=== PATIENT | male | born 1985 | race Two or more races ===

== ENCOUNTER 2020-05-13 00:30 | Emergency (ER) | payer BC, OTHER ==
[~2020-05-13] VITALS: Ht 188 cm; Wt 125.2 kg
--- NOTE | 2020-05-13 00:30 | NUR ---
BIBWIFE TO THE ER FOR C/O "I WOKE UP GASPING AIR AND COULD NOT BREATH" CURRENTLY W/ NO C/O SOB OR CP BUT W. C/O ACID REFLUX,PT TO BED 4, AAOX4, -SOB, -CP, VSS, NAD NOTED, PENDING ER PROVIDER JACKSON
[2020-05-13] MEDS ORDERED: LIDOCAINE VISCOUS 2% UD 15 ML UDC MM ONE (01:00)
[2020-05-13] MEDS ORDERED: MAG HYDROX/AL HYDROX/SIMETH 30 ML UDC PO ONE (01:00)
[2020-05-13] MEDS ORDERED: LIDOCAINE VISCOUS 2% UD 15 ML UDC ONE (01:21)
[2020-05-13] MEDS ORDERED: MAG HYDROX/AL HYDROX/SIMETH 30 ML UDC ONE (01:21)
[2020-05-13 01:41] LABS: BASOPHILS # (AUTO) 0.1 /CMM (0.0-0.2); BASOPHILS % (AUTO) 0.6 % (0.0-2.0); EOSINOPHILS % (AUTO) 1.4 % (0.0-6.0); HEMATOCRIT 44 % (39-51); HEMOGLOBIN 14.9 g/dL (13.5-17.5); LYMPHOCYTES # (AUTO) 3.5 /CMM (0.8-4.8); LYMPHOCYTES % (AUTO) 36.9 % (20.0-44.0); MEAN CORPUSCULAR HGB CONC 34 g/dl (31.0-36.0); MEAN CORPUSCULAR VOLUME 85 fL (80-96); NEUTROPHILS # (AUTO) 4.9 /CMM (1.8-8.9); NEUTROPHILS % (AUTO) 51.1 % (43.0-81.0); PLATELET COUNT (AUTO) 221 /CMM (150-450); RED BLOOD CELL COUNT(AUTO) 5.13 MIL/uL (4.5-6.0); WHITE BLOOD COUNT (AUTO) 9.5 K/uL (4.3-11.0)
[2020-05-13 02:16] LABS: ALBUMIN 3.9 g/dL (3.4-5.0); BILIRUBIN,DIRECT 0.1 mg/dL (0.0-0.2); BILIRUBIN,TOTAL 0.4 mg/dL (0.2-1.0); CALCIUM, SERUM 9.2 mg/dL (8.5-10.1); CREATININE 1.2 mg/dL (0.6-1.3); POTASSIUM 3.6 mmol/L (3.5-5.1); TOTAL PROTEIN, SERUM 7.7 g/dL (6.4-8.2)
--- NOTE | 2020-05-13 02:33 | NUR ---
Patient discharged to home in stable condition. Written and verbal after care instructions given. Patient verbalizes understanding of instruction.
[2020-05-13 02:36] VITALS: BP 132/80
== END 2020-05-13 02:36 | disposition home or self-care (01) ==
LOC: ER 00:32
DX: K21.9 Gastro-esophageal reflux disease without esophagitis (principal); J45.909 Unspecified asthma, uncomplicated; Z90.89 Acquired absence of other organs
CPT/HCPCS: 36415; 80048-TC; 80076-TC; 83690-TC; 85025-TC

== ENCOUNTER 2020-05-13 04:49 | Emergency (ER) | payer BC ==
[~2020-05-13] VITALS: Ht 193 cm; Wt 125.2 kg
[2020-05-13 05:05] VITALS: BP 120/77
[2020-05-13] MEDS ORDERED: LORAZEPAM 1 MG TABLET ONE (05:24)
[2020-05-13] MEDS ORDERED: LORAZEPAM 1 MG TABLET PO ONE (05:30)
== END 2020-05-13 05:38 | disposition home or self-care (01) ==
LOC: ER 04:50
DX: F41.9 Anxiety disorder, unspecified (principal); J45.909 Unspecified asthma, uncomplicated; Z90.89 Acquired absence of other organs

== ENCOUNTER 2020-11-06 17:00 | Emergency (ER) | payer BC ==
[~2020-11-06] VITALS: Ht 188 cm; Wt 124.7 kg
--- NOTE | 2020-11-06 17:10 | NUR ---
The patient BIBS for c/o chest pain (started 1300 today) and pain radiates to his left arm, neck, and jaw. The patient rates pain 4/10. The patient has mild SOB but oxygen saturation level is 98% in room air at this time. Respiration regular and unlabored. Patient is attached on a monitor. Warm blanket provided for comfort. Will continue to monitor the patient.
--- NOTE | 2020-11-06 17:32 | NUR ---
BLOOD SPECIMEN COLLECTED AND SENT TO THE LAB.
[2020-11-06 17:43] LABS: BASOPHILS # (AUTO) 0.1 /CMM (0.0-0.2); BASOPHILS % (AUTO) 0.8 % (0.0-2.0); EOSINOPHILS % (AUTO) 1.4 % (0.0-6.0); HEMATOCRIT 41 % (39-51); HEMOGLOBIN 13.7 g/dL (13.5-17.5); LYMPHOCYTES # (AUTO) 2.3 /CMM (0.8-4.8); LYMPHOCYTES % (AUTO) 28.2 % (20.0-44.0); MEAN CORPUSCULAR HGB CONC 33 g/dl (31.0-36.0); MEAN CORPUSCULAR VOLUME 86 fL (80-96); MONOCYTES # (AUTO) 0.6 /CMM (0.1-1.30); MONOCYTES % (AUTO) 7.8 % (2.0-12.0); NEUTROPHILS # (AUTO) 5.1 /CMM (1.8-8.9); NEUTROPHILS % (AUTO) 61.8 % (43.0-81.0); PLATELET COUNT (AUTO) 228 /CMM (150-450); RED BLOOD CELL COUNT(AUTO) 4.81 MIL/uL (4.5-6.0); WHITE BLOOD COUNT (AUTO) 8.3 K/uL (4.3-11.0)
[2020-11-06 17:47] LABS: CALCIUM, SERUM 9.1 mg/dL (8.5-10.1); CARBON DIOXIDE 27 mmol/L (21-32); CHLORIDE 105 mmol/L (98-107); CREATININE 1.2 mg/dL (0.6-1.3); GLUCOSE 98 mg/dL (74-106); POTASSIUM 3.8 mmol/L (3.5-5.1); SODIUM SERUM 141 mmol/L (136-145); UREA NITROGEN, BLOOD 13 mg/dL (7-18)
[2020-11-06] MEDS ORDERED: OMEP20CA15 PO (18:09)
[2020-11-06 19:44] LABS: ALBUMIN 4.1 g/dL (3.4-5.0); BILIRUBIN,DIRECT 0.1 mg/dL (0.0-0.2); BILIRUBIN,TOTAL 0.4 mg/dL (0.2-1.0); TOTAL PROTEIN, SERUM 7.5 g/dL (6.4-8.2)
[2020-11-06 19:57] VITALS: BP 131/86
--- NOTE | 2020-11-06 19:57 | NUR ---
Patient discharged to home in stable condition. Written and verbal after care instructions given. Patient verbalizes understanding of instruction and RX. Pt denies pain, vss.
--- NOTE | 2020-11-06 19:57 | NUR ---
IV removed. Catheter intact and site benign. Pressure and 4x4 applied to site. No bleeding noted.
== END 2020-11-06 19:58 | disposition home or self-care (01) ==
LOC: ER 17:08
DX: R07.89 Other chest pain (principal); J45.909 Unspecified asthma, uncomplicated; Z98.890 Other specified postprocedural states; Z90.89 Acquired absence of other organs; Z79.899 Other long term (current) drug therapy
CPT/HCPCS: 36415; 71045-TC; 80048-TC; 80076-TC; 83690-TC; 84484-TC; 85025-TC

== ENCOUNTER 2021-01-24 16:21 | Emergency (ER) | payer BC ==
[~2021-01-24] VITALS: Ht 188 cm; Wt 123.4 kg
[~2021-01-24 16:21] MED LIST: OMEP20CA15 PO
--- NOTE | 2021-01-24 16:21 | NUR ---
PT BIB SELF C/O CHEST HEAVINESS AND BILATERAL ARM NUMBNESS. 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 WILL CONTINUE TO MONITOR.
--- NOTE | 2021-01-24 16:30 | NUR ---
IV LINE ESTABLISHED BLOOD DRAWN AND SENT TO LAB.
--- NOTE | 2021-01-24 16:49 | NUR ---
AT BEDSIDE FOR EVAL.
--- NOTE | 2021-01-24 17:07 | NUR ---
[employer] CLERK AT BEDSIDE FOR XRAY.
[2021-01-24 17:25] LABS: BASOPHILS % (AUTO) 0.6 % (0.0-2.0); EOSINOPHILS % (AUTO) 1.5 % (0.0-6.0); HEMATOCRIT 43 % (39-51); HEMOGLOBIN 14.3 g/dL (13.5-17.5); LYMPHOCYTES # (AUTO) 2.6 /CMM (0.8-4.8); LYMPHOCYTES % (AUTO) 30.8 % (20.0-44.0); MEAN CORPUSCULAR HGB CONC 34 g/dl (31.0-36.0); MEAN CORPUSCULAR VOLUME 88 fL (80-96); MONOCYTES # (AUTO) 0.6 /CMM (0.1-1.30); MONOCYTES % (AUTO) 7.5 % (2.0-12.0); NEUTROPHILS # (AUTO) 5.1 /CMM (1.8-8.9); NEUTROPHILS % (AUTO) 59.6 % (43.0-81.0); PLATELET COUNT (AUTO) 235 /CMM (150-450); RED BLOOD CELL COUNT(AUTO) 4.83 MIL/uL (4.5-6.0); WHITE BLOOD COUNT (AUTO) 8.6 K/uL (4.3-11.0)
[2021-01-24 17:35] LABS: CALCIUM, SERUM 8.9 mg/dL (8.5-10.1); CARBON DIOXIDE 26 mmol/L (21-32); CHLORIDE 103 mmol/L (98-107); GLUCOSE 121 mg/dL (74-106); POTASSIUM 3.7 mmol/L (3.5-5.1); SODIUM SERUM 138 mmol/L (136-145); UREA NITROGEN, BLOOD 16 mg/dL (7-18)
[2021-01-24 17:49] LABS: BILIRUBIN,URINE NEGATIVE (NEGATIVE); COLOR,URINE YELLOW (YELLOW); LEUKOCYTE ESTERASE ,URINE NEGATIVE (NEGATIVE); NITRITE, URINE NEGATIVE (NEGATIVE); PROTEIN,URINE NEGATIVE (NEGATIVE); UGLUCOSE NEGATIVE (NEGATIVE); UROBILINOGEN,URINE 0.2 EU/dL (0.2)
--- NOTE | 2021-01-24 19:35 | NUR ---
PHLEB AT BEDSIDE FOR TROP
--- NOTE | 2021-01-24 20:39 | NUR ---
IV removed. Catheter intact and site benign. Pressure and 4x4 applied to site. No bleeding noted.Patient discharged to home in stable condition. Written and verbal after care instructions given. Patient verbalizes understanding of instruction.
[2021-01-24 20:40] VITALS: BP 144/77
== END 2021-01-24 20:41 | disposition home or self-care (01) ==
LOC: ER 16:26
DX: R07.89 Other chest pain (principal); R20.0 Anesthesia of skin; J45.909 Unspecified asthma, uncomplicated; E78.00 Pure hypercholesterolemia, unspecified; Z90.89 Acquired absence of other organs
CPT/HCPCS: 36415; 70450-TC; 71045-TC; 80048-TC; 84484-TC; 85025-TC; G0480